=== PATIENT | female | born 1975 | race Caucasian/White ===

== ENCOUNTER 2021-03-03 22:32 | Emergency (ER) | payer OTHER ==
[~2021-03-03] VITALS: Ht 162.6 cm; Wt 54.4 kg
[2021-03-03 22:50] VITALS: BP_SYST 126
[2021-03-03] MEDS ORDERED: IBUP-1969 PO (23:49)
[2021-03-04 00:26] VITALS: BP_SYST 112
== END 2021-03-04 00:26 | disposition home or self-care (01) ==
LOC: SED 22:32
DX: S83.92XA Sprain of unspecified site of left knee, initial encounter (principal); Z79.899 Other long term (current) drug therapy; W17.2XXA Fall into hole, initial encounter; Y93.89 Activity, other specified; Y92.89 Other specified places as the place of occurrence of the external cause; Y99.8 Other external cause status
CPT/HCPCS: 73564; 99283